=== PATIENT | male | born 2000 | race Caucasian/White ===

== ENCOUNTER → 2020-08-14 15:29 | Outpatient (REF) | payer MEDICAID, SELFPAY ==
--- NOTE | 2020-08-14 03:00 | CA_ITS ---
Transthoracic Echocardiogram Patient (Last, First, Middle): Denilson Rodriguez M Gender: Male Date of : 2000 Age: 19 Procedure Date: 08/14/2020 Procedure Type: Transthoracic Echocardiogram Location: OP Height: 175.26 cm Weight: 66.23 kg BSA: 1.81 m2 Heart Rate: bpm BP: 112 / 70 mmHg Sas Developer: DARLYN Amaro MD: Jesse Rouse MD Ocean Export Agent: Audi Suarez MD Symptoms: SYNCOPE COLLAPSE R55 Study Quality: Good ECG Rhythm: Sinus Conclusions: - Normal study Findings Left Ventricle Normal left ventricular size, thickness, and systolic function. The visually estimated ejection fraction is between 65-70%. There is no evidence of regional wall motion abnormalities. Diastolic function is normal for age. Right Ventricle Normal right ventricular cavity size and systolic function. Atria Both atria are normal in size. There is no evidence of interatrial shunt. Aortic Valve Normal aortic valve structure and function. There is no aortic valve stenosis. There is no aortic valve regurgitation. Mitral Valve Normal mitral valve structure and function. There is trace mitral valve regurgitation. There is no mitral valve stenosis. Pulmonic Valve The pulmonic valve is likely normal. Tricuspid Valve Normal tricuspid valve structure. There is trace tricuspid valve regurgitation. The right ventricular systolic pressure is normal. The right ventricular systolic pressure is 19 mmHg. Normal right atrial pressure. There is no evidence of pulmonary hypertension. Great Vessels All visible segments of the aorta are normal in size. The pulmonary artery was not well visualized. Venous The inferior vena cava is normal in size and collapses greater than 50% with inspiration. Pericardium/Pleural There is no evidence of pericardial effusion. Prior Study Comparison No prior study available for comparison. Measurements 2D Linear Measurements RVIDd: 2.52 RVIDd Index: 1.39 IVSd: 0.75 0.6-0.9/0.6-1.0 cm LVIDd: 5.21 3.9-5.3/4.2-5.9 cm LVIDd Index: 2.88 2.4-3.2/2.2-3.1 cm/m2 LVIDs: 3.40 2.0-3.6 cm LVPWd: 1.00 0.7-1.1 cm Ao Root: 2.40 2.1-3.5 cm LA Diam: 2.90 2.7-3.8/3.0-4.0 cm LAIDs Index: 1.60 1.5-2.3 cm/m2 LV Mass: 204.17 67-162/88-224 g LV Mass Index: 112.80 43-95/49-115 g/m2 LVOT Diam: 2.10 3.0+(-)1.3 cm 2D Systolic Function EF 4C: 69.40 >55% EF 2C: 65.20 >55% EF BiP: 68.30 >55% Mitral Valve MV Pk E: 0.96 MV PK A: 0.25 MV Decel Time: 280.00 E/A: 3.80 E'Lateral: 17.10 E'Medial: 13.50 E/E' Med: 7.10 E/E' Lat: 5.60 Aortic Valve AoV Pk Chris: 1.59 AoV Mn Chris: 0.97 AoV VTI: 0.35 AoV Pk Grad: 10.00 Aov Mn Grad: 5.00 AGUILA Cont.VTI: 2.22 LVOT LVOT Pk Chris: 1.17 LVOT Mn Chris: 0.78 LVOT VTI: 0.22 LVOT Pk Grad: 5.00 LVOT Mn Grad: 3.00 LVOT Diam: 2.10 LVOT Area: 3.46 Diastolic Function MV Pk E: 0.96 MV Pk A: 0.25 E/A: 3.80 E'Medial: 13.50 E/E' Med: 7.10 E' Laterial: 17.10 E/E' Lat: 5.60 Tricuspid Valve TR Pk Chris: 2.00 TR Pk Grad: 16.00 RA Press: 3.00 RVSP: 19.00 Great Vessels Aorta Ao Root-2D: 2.40 2.0-3.7 cm Ao Asc: 2.20 2.1-3.4 cm Ao Arch: 1.50 Updated in Other Vendor System with Status of Final Audi Suarez MD electronically signed on 08/16/2020 10:41:37 AM with status of Final
== END ==
LOC: HO.CARD 15:29
PROVIDERS: Visit Provider Internal Medicine
DX: R55 Syncope and collapse (principal)
CPT/HCPCS: 93306

== ENCOUNTER → 2020-09-19 15:13 | Outpatient (BNVA) | payer MEDICAID, SELFPAY | PROVIDERS: Visit Provider Internal Medicine | DX: R55 Syncope and collapse (principal) | CPT/HCPCS: 99212 ==

== ENCOUNTER 2020-11-14 11:18 | Outpatient (REF) | payer MEDICAID, SELFPAY | END 2020-11-14 11:19 | disposition home or self-care (01) | LOC: HO.LAB 11:18 | PROVIDERS: Visit Provider Internal Medicine | DX: Z20.822 Contact with and (suspected) exposure to COVID-19 (principal) | CPT/HCPCS: 36415; C9803; U0003; U0005 ==

== ENCOUNTER 2020-11-26 15:06 | Outpatient (REF) | payer MEDICAID, SELFPAY | END 2020-11-26 15:07 | disposition home or self-care (01) | LOC: HO.LAB 15:06 | PROVIDERS: Visit Provider Internal Medicine | DX: Z20.822 Contact with and (suspected) exposure to COVID-19 (principal) | CPT/HCPCS: 36415; C9803; U0003; U0005 ==

== ENCOUNTER 2021-01-23 16:47 | Emergency (ER) | payer MEDICAID, SELFPAY | END 2021-01-23 18:34 | disposition left against medical advice (07) | LOC: HO.ED 18:27 | PROVIDERS: Emergency Provider Emergency Medicine | DX: M54.9 Dorsalgia, unspecified (principal) ==

== ENCOUNTER 2021-01-30 02:46 | Emergency (ER) | payer MEDICAID, SELFPAY ==
[2021-01-30 02:54] VITALS: BP 145/79; PULSE 81; RESP 18; TEMP 36.7; O2SAT 97; BMI 22.8
--- NOTE | 2021-01-30 03:56 | ED.GENADULT ---
HPI - General Adult General Chief complaint: Back Pain/Injury Stated complaint: Back pain Time Seen by Provider: 01/30/21 03:56 Source: patient Mode of arrival: ambulatory Limitations: no limitations History of Present Illness HPI narrative: 20-year-old male who presents emergency department for evaluation of lower back pain x1 week. The patient states that he does not recall any specific injury to his back. He is active and he states that he does lift heavy objects at work but does not recall specific work injury. Patient states that he has had a constant, lower back pain which she describes as a dull, cramping pain which is worse with movement. The pain is 7/10 at its worst. The pain does not radiate down his legs, he denies numbness or weakness or loss of bowel or bladder control. The patient states that he has been taking ibuprofen occasionally with only minimal relief his pain. He denied fever, chills, chest pain, shortness of breath, nausea, vomiting. Related Data Previous Rx's Medication Instructions Recorded cyclobenzaprine 10 mg PO TID PRN #20 tab 01/30/21 Allergies Allergy/AdvReac Type Severity Reaction Status Date / Time No Known Allergies Allergy Verified 01/30/21 02:57 Review of Systems Review of Systems: Yes all other systems are reviewed and are negative PMFSH Past Medical History [facility] Narrative: The patient works in a plastic factory. He denies tobacco use, he states he drinks alcohol 3 times a week, he denies injection drug use, he does smoke marijuana daily. Medical History (Updated 01/30/21 @ 04:02 by Ba Shields MD) Syncope and collapse Family History Family History Father No problems noted. Mother No problems noted. Maternal Grandmother CVD (cardiovascular disease) Maternal Grandfather CVD (cardiovascular disease) Social History Social History Smoking Status: Never smoker Advance Directives: No Physical Exam Vital Signs: Vital Signs: Last Vital Signs Temp 98.1 F 01/30/21 02:54 Pulse 81 01/30/21 02:54 Resp 18 01/30/21 02:54 BP 145/79 H 01/30/21 02:54 Pulse Ox 97 01/30/21 02:54 Body Mass Index 22.8 Const: General: cooperative and healthy appearing Orientation/consciousness: oriented to person and oriented to place Limitations: no limitations HENMT: Head: Yes normal to inspection, Yes normocephalic and Yes atraumatic Ears: external ears normal General nose exam: Normal external nose present Face and sinus: Yes normal facial exam Mouth: Normal oral and palatal mucosa present Throat: Yes posterior oropharynx normal Eyes: Periorbital: periorbital findings normal Eyelids: Yes eyelids normal Conjunctivae: conjunctivae normal Sclerae: sclerae normal Corneas: corneas normal Pupils: Equal, round and reactive pupils present Direct Ophthalmoscopy: normal light reflex Neck: Neck: Yes full ROM, Yes no lymphadenopathy, Yes no meningeal signs, Yes trachea midline and Yes supple Chest: Chest palpation & inspection: normal inspection of the chest and normal palpation of entire chest wall Resp: Effort & Inspection: normal respiratory effort and able to speak in complete sentences Auscultation: clear to auscultation bilaterally Cardio: Rate: regular rate Rhythm: regular rhythm Heart sounds: S1 normal heart sound present, S2 normal heart sound present and no murmurs GI: Inspection: Yes normal to inspection Palpation (GI): Soft to palpation, nontender, no guarding, not rigid and No hepatosplenomegaly present : General: Yes no CVA tenderness Back/Spine/Pelvis: Back: no CVA tenderness Cervical Spine: normal cervical lordosis Thoracic/Lumbar Spine: thoracic and lumbar spine normal to inspection and paraspinal muscle tenderness bilaterally in the lower lumbar (Moderate with spasm) Skin: Lesions: no lesions Rashes: no rashes Wounds: no wounds Neuro: General: oriented to person, oriented to place and no meningeal signs Cranial nerves: Yes CN's II-XII intact bilaterally and Yes Equal, round and reactive pupils present Cognition (Neuro): normal cognition Motor exam (neuro): 5/5 motor strength present throughout Extrem: General: Yes normal to inspection and Yes full ROM Psych: Appearance: well kempt Mental Status: mental status grossly normal Speech and movement: Normal speech and movement present Affect: normal affect Attitude: cooperative Thought process: Normal thought process present Thought content: Normal thought content present Course Course Course Narrative: 20-year-old male who presents emergency department with lower back pain x1 week with no known injury. Physical examination did reveal tenderness with palpation of his paraspinal muscles in the lumbar sacral area with spasm of these muscles. His vital revealed a slightly elevated blood pressure otherwise no fever was noted. Patient's presentation is consistent with lumbar sacral paraspinal muscle strain/sprain. I did discuss this with the patient. He is advised to take ibuprofen Tylenol, he was also given a prescription for Flexeril. He was given verbal and printed instructions on back strain and discharged home. Discharge Plan Discharge Clinical Impression: Back strain Patient Disposition: Home, Self-Care Instructions: Low Back Strain (ED) Additional Instructions: Back Pain Discharge Instructions: Take Motrni(ibuprofen) 200 mg pills, 3 pills every 6 hours as needed for pain. Take Tylenol(acetaminophen) 325 mg pills, 2 pills every 4 hours as needed for pain. Take Flexeril(cyclobenzaprine) 10 mg pills, 1 pill every 8 hours as needed for pain or muscle spasm. This is a prescription medication. This medication will make you sleepy, therefore do not drive or work while taking this medication. Apply ice for 15 minutes to the area that hurts on your back, then apply a heating a pad on low for 15 minutes. Do this 4-6 times a day to help reduce the pain in your back. Continue with normal activities as tolerated since staying in bed and not moving around will make your pain worse. You can also try over the counter lidocaine patches as directed on the box to help with the pain. Please return to the Emergency Department or see your doctor immediately if your symptoms get worse or if you develop any new symptoms that are concerning you. Follow up with your doctor in 2 day. Please read the other printed discharge instructions on back pain. Prescriptions: New cyclobenzaprine 10 mg tablet 10 mg PO TID PRN (Reason: muscle pain or spasm) Qty: 20 RF: 0
== END 2021-01-30 04:57 | disposition home or self-care (01) ==
PROVIDERS: Emergency Provider Emergency Medicine Emergency Medical Services
DX: S39.012A Strain of muscle, fascia and tendon of lower back, initial encounter (principal); M79.605 Pain in left leg; M79.604 Pain in right leg; X58.XXXA Exposure to other specified factors, initial encounter; Y93.9 Activity, unspecified; Y92.9 Unspecified place or not applicable; Y99.9 Unspecified external cause status; Z79.899 Other long term (current) drug therapy
CPT/HCPCS: 99283

== ENCOUNTER 2021-07-25 17:29 | Emergency (ER) | payer MEDICAID, SELFPAY | END 2021-07-25 20:52 | disposition left against medical advice (07) | PROVIDERS: Emergency Provider Emergency Medicine | DX: M79.10 Myalgia, unspecified site (principal); R11.0 Nausea ==

== ENCOUNTER 2022-02-19 14:09 | Emergency (ER) | payer MEDICAID, SELFPAY ==
--- NOTE | 2022-02-19 | ECG_ITS ---
Test Reason : CHEST PAIN Blood Pressure : / mmHG Vent. Rate : 071 BPM Atrial Rate : 071 BPM P-R Int : 144 ms QRS Dur : 096 ms QT Int : 358 ms P-R-T Axes : 056 031 036 degrees QTc Int : 389 ms Normal sinus rhythm with sinus arrhythmia Normal ECG When compared with ECG of 04-JAN-2020 13:24, No significant change was found Referred By: Generic ED Physician Electronically Signed By:ANEUDY SIDHU MD
--- NOTE | ~2022-02-19 | XR_ITS ---
EXAMINATION: XR CHEST CLINICAL INFORMATION: Chest pain COMPARISON: Chest radiograph from 01/04/2020 TECHNIQUE: 2 views of the chest were obtained. FINDINGS: No focal consolidation. No pneumothorax. Trachea is midline. Cardiomediastinal silhouette is not enlarged. No large pleural effusion. Osseous structures are intact. Soft tissues are unremarkable. XR/XR chest 2V IMPRESSION: No acute cardiopulmonary process.
[2022-02-19 15:27] VITALS: BP 141/84; PULSE 67; RESP 18; TEMP 36.8; O2SAT 98; BMI 28.1
[2022-02-19 16:46] LABS: MANUAL DIFF FLAG NO
[2022-02-19 16:57] LABS: Basophils Percent Auto 0.3 % (0-2); Eosinophils Absolute Auto 0.1 X10*3/uL (0.0-0.4); Eosinophils Percent Auto 1.2 % (0-4); Hematocrit 45.8 % (42.0-52.0); Hemoglobin 15.6 g/dl (14.0-18.0); Imm Gran Abs Auto 0.01 X10*3/uL (0.00-0.03); Imm Gran Pct Auto 0.2 % (0.0-0.4); Lymphocytes Absolute Auto 1.4 X10*3/uL (1.2-4.9); Lymphocytes Percent Auto 21.5 % (20-40); Mean Corpuscular HGB Conc 34.1 g/dl (31.0-36.0); Mean Corpuscular Hemoglobin 30.4 pg (27.0-33.0); Mean Corpuscular Volume 89.1 fL (80.0-98.0); Mean Platelet Volume 10.6 fL (9.4-12.4); Monocytes Absolute Auto 0.6 X10*3/uL (0.1-1.2); Monocytes Percent Auto 9.3 % (2-11); Neutrophils Absolute Auto 4.4 x10*3/uL (2.0-8.3); Neutrophils Percent Auto 67.5 % (45-73); Platelet Count 171 X10*3/uL (160-400); Red Blood Count 5.14 X10*6/uL (4.60-5.80); White Blood Count 6.5 X10*3/uL (4.8-10.8)
[2022-02-19 17:04] LABS: Anion Gap 12 (12-20); Blood Urea Nitrogen 10 mg/dL (9-16); Calcium 9.9 mg/dL (8.4-10.2); Carbon Dioxide 27 mmol/L (22-29); Chloride 104 mmol/L (96-108); Creatinine Clr Calc Pharmacy 145.5; Estimated Glomerular Filt Rate > 60; Glucose Random 95 mg/dL (60-115); Potassium 4.4 mmol/L (3.3-5.1); Sodium 139 mmol/L (135-145)
[2022-02-19 17:06] LABS: Troponin-I High Sensitivity < 3.5 ng/L (<3.5-35.0)
== END 2022-02-19 23:44 | disposition left against medical advice (07) ==
PROVIDERS: Emergency Provider Emergency Medicine; PCP Nurse Practitioner Primary Care
DX: R07.9 Chest pain, unspecified (principal)
CPT/HCPCS: 36415; 71046; 80048; 84484; 85025; 93005; 99281; 99283

== ENCOUNTER → 2022-03-11 13:47 | Outpatient (BNVA) | payer MEDICAID, SELFPAY | PROVIDERS: PCP Nurse Practitioner Primary Care; Referring Provider Nurse Practitioner Primary Care; Visit Provider Nurse Practitioner Family | DX: R07.9 Chest pain, unspecified (principal) | CPT/HCPCS: 99212 ==

== ENCOUNTER 2022-05-05 14:27 | Emergency (ER) | payer MEDICAID, SELFPAY ==
[2022-05-05 16:21] VITALS: BP 131/76; BP 136/86; PULSE 60; PULSE 74; RESP 16; TEMP 36.4; O2SAT 100; O2SAT 97; BMI 27.3
== END 2022-05-05 20:37 | disposition left against medical advice (07) ==
PROVIDERS: Emergency Provider Emergency Medicine
DX: R06.02 Shortness of breath (principal); F41.9 Anxiety disorder, unspecified
CPT/HCPCS: 99281

== ENCOUNTER → 2022-05-06 12:54 | Outpatient (REF) | payer MEDICAID, SELFPAY ==
--- NOTE | 2022-05-06 13:00 | CA_ITS ---
Transthoracic Echocardiogram Patient (Last, First, Middle): Denilson Rodriguez M Gender: Male Date of : 2000 Age: 21 Procedure Date: 05/06/2022 Procedure Type: Transthoracic Echocardiogram Location: OP Height: 175.26 cm Weight: 86.18 kg BSA: 2.02 m2 Heart Rate: bpm BP: 124 / 80 mmHg Speeder Operator: IONA Referring MD: Lety Gaxiola [facility]-C Symptoms: R07.9 CHEST PAIN Study Quality: Fair ECG Rhythm: Sinus Conclusions: - The left ventricular systolic function is normal. The calculated ejection fraction is 60% by biplane method. - No obvious valvular pathology seen on this study. Findings Procedure Information Contrast agent, definity, is being given per protocol without apparent complications. Left Ventricle Normal left ventricular cavity size. There is normal left ventricular wall thickness. The left ventricular systolic function is normal. The calculated ejection fraction is 60% by biplane method. There is no evidence of regional wall motion abnormalities. Diastolic function is normal for age. Right Ventricle Normal right ventricular cavity size and systolic function. Atria Both atria are normal in size. Aortic Valve There is a normal trileaflet aortic valve. There is no aortic valve stenosis. There is no aortic valve regurgitation. Mitral Valve The mitral valve appears normal. There is trace mitral valve regurgitation. There is no mitral valve stenosis. Pulmonic Valve The pulmonic valve is likely normal. Tricuspid Valve Normal tricuspid valve structure. There is no tricuspid valve regurgitation. The pulmonary artery systolic pressure is normal. Great Vessels The aortic annulus, sinuses of valsalva, and asc aorta are normal in size. Venous The inferior vena cava is normal in size and collapses greater than 50% with inspiration. Pericardium/Pleural There is no evidence of pericardial effusion. Prior Study Comparison No significant change compared to prior study dated: 08/14/2020. Recommendations, Care & Conclusions No obvious valvular pathology seen on this study. Measurements 2D Linear Measurements IVSd: 1.03 0.6-0.9/0.6-1.0 cm LVIDd: 5.13 3.9-5.3/4.2-5.9 cm LVIDd Index: 2.54 2.4-3.2/2.2-3.1 cm/m2 LVIDs: 3.54 2.0-3.6 cm LVPWd: 1.12 0.7-1.1 cm Ao Root: 2.70 2.1-3.5 cm LA Diam: 3.50 2.7-3.8/3.0-4.0 cm LAIDs Index: 1.73 1.5-2.3 cm/m2 LV Mass: 260.86 67-162/88-224 g LV Mass Index: 129.14 43-95/49-115 g/m2 LVOT Diam: 2.10 3.0+(-)1.3 cm 2D Systolic Function EF 4C: 63.40 >55% EF 2C: 56.90 >55% EF BiP: 60.30 >55% Mitral Valve MV Pk E: 0.85 MV PK A: 0.39 MV Decel Time: 209.00 E/A: 2.20 E'Lateral: 15.70 E'Medial: 11.10 E/E' Med: 7.60 E/E' Lat: 5.40 PHT: 61.00 MVA PHT: 3.61 Decel Jennings: 4.06 Aortic Valve AoV Pk Chris: 1.55 AoV Mn Chris: 0.99 AoV VTI: 0.33 AoV Pk Grad: 10.00 Aov Mn Grad: 5.00 AGUILA Cont.VTI: 2.36 LVOT LVOT Pk Chris: 1.12 LVOT Mn Chris: 0.79 LVOT VTI: 0.23 LVOT Pk Grad: 5.00 LVOT Mn Grad: 3.00 LVOT Diam: 2.10 LVOT Area: 3.46 Diastolic Function MV Pk E: 0.85 MV Pk A: 0.39 E/A: 2.20 E'Medial: 11.10 E/E' Med: 7.60 E' Laterial: 15.70 E/E' Lat: 5.40 Right Ventricle TAPSE (mm): 25.00 Tricuspid Valve TR Pk Chris: 2.18 TR Pk Grad: 19.00 RA Press: 3.00 RVSP: 22.00 Great Vessels Aorta Ao Root-2D: 2.70 2.0-3.7 cm Ao Asc: 2.50 2.1-3.4 cm Pulmonary Valve PV Pk Chris: 1.20 Peak PV Grad: 6.00 Updated in Other Vendor System with Status of Final Jesse Rouse MD electronically signed on 05/08/2022 10:50:05 AM with status of Final
== END ==
LOC: HO.CARD 12:54
PROVIDERS: PCP Nurse Practitioner Primary Care; Visit Provider Nurse Practitioner Family
DX: R07.9 Chest pain, unspecified (principal)
CPT/HCPCS: 93306; Q9957

== ENCOUNTER 2022-07-20 06:21 | Emergency (ER) | payer MEDICAID, SELFPAY ==
--- NOTE | ~2022-07-20 | XR_ITS ---
EXAMINATION: RIGHT FOOT AND RIGHT ANKLE. CLINICAL INFORMATION: Pain in top of the foot. COMPARISON: None TECHNIQUE: Right foot 3 views. Right ankle 2 views. FINDINGS: RIGHT FOOT: There is no visible acute fracture, dislocation or subluxation. The joint spaces are maintained normal. The soft tissues are normal. RIGHT ANKLE: The ankle mortise and subtalar joints are normal. No visible acute fracture or dislocation seen. No abnormal soft tissue swelling. XR/XR ankle RT 2V IMPRESSION: Unremarkable right foot. Unremarkable right ankle.
--- NOTE | ~2022-07-20 | XR_ITS ---
EXAMINATION: RIGHT FOOT AND RIGHT ANKLE. CLINICAL INFORMATION: Pain in top of the foot. COMPARISON: None TECHNIQUE: Right foot 3 views. Right ankle 2 views. FINDINGS: RIGHT FOOT: There is no visible acute fracture, dislocation or subluxation. The joint spaces are maintained normal. The soft tissues are normal. RIGHT ANKLE: The ankle mortise and subtalar joints are normal. No visible acute fracture or dislocation seen. No abnormal soft tissue swelling. XR/XR foot RT 2V IMPRESSION: Unremarkable right foot. Unremarkable right ankle.
[2022-07-20 07:19] VITALS: BP 139/84; PULSE 60; RESP 16; TEMP 36.9; O2SAT 98; BMI 28.8
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
== END 2022-07-20 09:33 | disposition home or self-care (01) ==
PROVIDERS: Emergency Provider Student in an Organized Health Care Education/Training Program; PCP Nurse Practitioner Primary Care
DX: S90.31XA Contusion of right foot, initial encounter (principal); V86.56XA Driver of dirt bike or motor/cross bike injured in nontraffic accident, initial encounter; Y93.89 Activity, other specified; Y92.9 Unspecified place or not applicable; Y99.9 Unspecified external cause status
CPT/HCPCS: 73600; 73620; 99283

== ENCOUNTER 2022-11-24 09:33 | Outpatient (REF) | payer MEDICAID, SELFPAY ==
[2022-11-24 10:50] LABS: Hemoglobin 15.1 g/dl (14.0-18.0); Mean Corpuscular HGB Conc 34.3 g/dl (31.0-36.0); Mean Corpuscular Hemoglobin 31.1 pg (27.0-33.0); Mean Corpuscular Volume 90.5 fL (80.0-98.0); Mean Platelet Volume 10.9 fL (9.4-12.4); Platelet Count 174 X10*3/uL (160-400); Red Blood Count 4.86 X10*6/uL (4.60-5.80); White Blood Count 3.9 X10*3/uL (4.8-10.8)
[2022-11-24 11:26] LABS: C Reactive Protein 0.63 mg/dL (< or = 0.50)
[2022-11-24 11:50] LABS: Ferritin 96 ng/mL (20-250); TSH reflex Free T4 1.16 uIU/mL (0.32-4.0)
[2022-11-25 05:02] LABS: ~HepC Num1 0.14 S/CO (0.00-0.79); ~Hepatitis C Antibody Nonreactive (Nonreactive)
[2022-11-26 14:23] LABS: Immunoglobulin A 255 mg/dL (47-310)
[2022-11-27 18:59] LABS: Transglutaminase IgA <1.0 U/mL
== END 2022-11-24 09:34 | disposition home or self-care (01) ==
LOC: HO.LAB 09:33
PROVIDERS: PCP Nurse Practitioner Primary Care; Visit Provider Internal Medicine
DX: R10.13 Epigastric pain (principal); R19.7 Diarrhea, unspecified
CPT/HCPCS: 36415; 82728; 82784; 84443; 85027; 86140; 86364; 86803; 99202

== ENCOUNTER 2022-12-27 15:04 | Emergency (ER) | payer MEDICAID, SELFPAY ==
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
[2022-12-27 15:11] VITALS: BP 148/72; PULSE 98; RESP 16; O2SAT 97; BMI 28.1
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
== END 2022-12-27 16:17 | disposition home or self-care (01) ==
PROVIDERS: Emergency Provider Emergency Medicine; PCP Nurse Practitioner Primary Care
DX: S60.221A Contusion of right hand, initial encounter (principal); M25.531 Pain in right wrist; Y33.XXXA Other specified events, undetermined intent, initial encounter; Y93.9 Activity, unspecified; Y92.9 Unspecified place or not applicable; Y99.9 Unspecified external cause status
CPT/HCPCS: 73110; 73130; 99283

== ENCOUNTER → 2023-01-22 12:22 | Outpatient (BNVA) | payer MEDICAID, SELFPAY | PROVIDERS: PCP Nurse Practitioner Primary Care; Visit Provider Internal Medicine | DX: R10.13 Epigastric pain (principal); R11.10 Vomiting, unspecified; K21.9 Gastro-esophageal reflux disease without esophagitis | CPT/HCPCS: 99212 ==

== ENCOUNTER 2023-03-11 12:24 | Day surgery (SDC) | payer MEDICAID, SELFPAY ==
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
[2023-03-11 12:38] VITALS: BMI 27.8
[2023-03-11 12:42] VITALS: BP 136/82; PULSE 81; RESP 16; TEMP 36.7; O2SAT 97
[2023-03-11] MEDS: Lactated Ringers 1,000 ML 100 ML IVCONT (12:59)
--- NOTE | 2023-03-11 13:15 | MHC.SHP ---
Pre-Procedural Eval Section A Date of Service: 03/11/23 Section B Chief Complaint: Epigastric pain,Vomiting, unspecified Relevant Social History: Tobacco Use (former ) Present Medications: see Short Stay Collaborative assessment Medical History: No relevant PMH History of Previous Operations: No relevant previous surgery Allergies: Allergies Allergy/AdvReac Type Severity Reaction Status Date / Time No Known Allergies Allergy Verified 01/22/23 12:30 Review of Systems Review of Systems Comment: Ten point ROS negative, his nausea and vomiting has fact resolved Exam Exam Comment: Gen appear: No acute distress HEENT: no icterus Chest: No overt resp distress Abd: soft, nontender, nondistended Psych: Stable affect, answering questions appropriately Neuro: A/Ox3 noted to move all extremities spontaneously Ext: no peripheral edema Plan Diagnosis/Plan: Unchanged I have reviewed the history and physical and performed a pertinent physical examination on my patient. No changes have occurred unless specified. Time Spent With Patient Time: Total time managing care of this patient today ____ minutes.
--- NOTE | 2023-03-11 13:16 | P.OP_ITS ---
Operative Note Operative Note Date of Service: 03/11/23 Narrative: Procedure: Esophagogastroduodenoscopy Endoscopist: Amy Leon MD Indication: Nausea, vomiting Anesthesia Provider: Dr Malcolm Wilkerson Anesthesia Type: MAC Instrument: Olympus [id number]-H190 ?? EGD Procedure:?? The procedure, indications, preparation and potential complications were reviewed with the patient, who indicated understanding and gave written informed consent to proceed. A physical exam was performed. The endoscope was introduced through the mouth, and advanced to the second part of duodenum. The mucosa was carefully examined on slow withdrawal of the endoscope. The patient tolerated the procedure well. There were no immediate complications.? ? EGD Findings:? * Esophagus:? Normal mucosa noted in the entire esophagus. The Z line was at 40 cm. * Stomach:? Normal mucosa was noted in the stomach. * Duodenum:? Normal mucosa was noted in the whole of the examined duodenum. Cold forceps biopsies were taken from duodenal bulb and second portion of the duodenum to rule out celiac sprue. ? EGD Impressions:? * Normal esophagus * Normal stomach * Normal duodenum (biopsy) ?? Recommendations:?? * Follow biopsy results. Our office will call or send a letter with results within 7-10 days. * No evidence of esophagitis noted, can taper of PPIs * Avoid NSAIDs and smoking. Above has been reviewed with the patient. Relevant educational hand outs were p rovided at discharge.
[2023-03-11 13:43] VITALS: BP 123/71; PULSE 90; RESP 17; TEMP 36.3; O2SAT 98
[2023-03-11 14:02] VITALS: BP 135/73; PULSE 73; RESP 18; TEMP 36.3; O2SAT 97
== END 2023-03-11 14:25 | disposition home or self-care (01) ==
PROVIDERS: PCP Nurse Practitioner Primary Care; Visit Provider Internal Medicine
PROC: 0DJ08ZZ Inspection of Upper Intestinal Tract, Via Natural or Artificial Opening Endoscopic (ICD-10-PCS; CPT 43235; principal; 2023-03-11 14:00)
DX: R10.13 Epigastric pain (principal); K29.80 Duodenitis without bleeding; Z79.899 Other long term (current) drug therapy; F12.90 Cannabis use, unspecified, uncomplicated; Z87.891 Personal history of nicotine dependence
CPT/HCPCS: 43239; 88305

== ENCOUNTER 2023-08-04 15:54 | Outpatient (REF) | payer MEDICAID, SELFPAY ==
[2023-08-05 04:15] LABS: Syphilis Screen Nonreactive (Nonreactive)
== END 2023-08-04 15:55 | disposition home or self-care (01) ==
LOC: HO.HHCL 15:54
PROVIDERS: Visit Provider Nurse Practitioner Family
DX: Z11.3 Encounter for screening for infections with a predominantly sexual mode of transmission (principal)
CPT/HCPCS: 36415; 86780

== ENCOUNTER 2023-08-11 16:05 | Outpatient (REF) | payer MEDICAID, SELFPAY ==
[2023-08-12 07:20] LABS: ~HepC Num1 0.13 S/CO (0.00-0.79); ~Hepatitis C Antibody Nonreactive (Nonreactive)
[2023-08-12 11:57] LABS: CT PCR NOT DETECTED (Not Detect.); NG PCR NOT DETECTED (Not Detect.)
[2023-08-15 19:18] LABS: HIV RNA PCR Qn Copies Not Detected Copies/mL; HIV RNA PCR Qn Log Copies Not Detected Log cps/mL
[2023-08-16 09:54] LABS: RPR Rapid Plasma Reagin NON-REACTIVE (NON-REACTIVE)
== END 2023-08-11 16:06 | disposition home or self-care (01) ==
LOC: HO.HHCL 16:05
PROVIDERS: Visit Provider Nurse Practitioner Family
DX: Z11.3 Encounter for screening for infections with a predominantly sexual mode of transmission (principal)
CPT/HCPCS: 0353U; 86592; 86803; 87536; 87900

== ENCOUNTER 2023-08-17 04:15 | Emergency (ER) | payer MEDICAID, SELFPAY ==
--- NOTE | ~2023-08-17 | CT_ITS ---
CT SOFT TISSUE NECK WITH CONTRAST CLINICAL INFORMATION: Right-sided tonsillar swelling with question abscess. COMPARISON: None available. TECHNIQUE: Following the intravenous administration of 100 mL of Omnipaque 350 intravenous contrast, helical imaging was performed in the axial plane with generation of coronal and sagittal reformatted images. This CT examination was performed using dose optimization techniques as appropriate, variously including the following: *Automated exposure control *Adjustment of mA and/or kV according to patient size (this includes techniques or standardized protocols for targeted exams where dose is matched to indication/reason for exam; i.e. extremities or head) *Use of iterative reconstruction technique FINDINGS: Asymmetric enlargement and heterogeneity of the right palatine tonsil suggesting palatine tonsillitis. There is an ill-defined hypodense collection along the upper and posterior margin of the right palatine tonsil measuring up to 1.2 cm in size concerning for a developing peritonsillar abscess. No deep cervical cellulitic changes. No retropharyngeal cellulitis. Reactive lymph nodes along the jugular chains bilaterally. Cervical venous system is patent. No acute nor suspicious osseous findings. Retention cyst within the maxillary sinuses bilaterally and mild mucosal thickening within the ethmoid air cells bilaterally. The partially imaged intracranial compartment is unremarkable. CT/CT soft tissue neck w IV con IMPRESSION: Right-sided palatine tonsillitis. There is an ill-defined hypodense collection along the upper and posterior margin of the right palatine tonsil measuring up to 1.2 cm in size concerning for a developing peritonsillar abscess. No retropharyngeal cellulitis.
[2023-08-17 04:36] VITALS: BP 145/80; PULSE 99; RESP 20; TEMP 37.6; O2SAT 96; BMI 28.0
--- NOTE | 2023-08-17 04:46 | PC.NURSE ---
Pt ambulated into room with a steady gait, AOx3, Pt reporting a sore throat since yesterday, worsening throughout the night. Pt reports throat feels very swollen, difficulty swallowing 10/10 pain. Denies fevers, denies n/v. No sick contacts, no redness or spots noted in back of throat. Pt has been swabbed and sent to lab, pt awaiting results.
[2023-08-17 04:52] LABS: IDNOW Serial# 6674DD1D; Strep A Nucleic Acid Negative (Negative)
[2023-08-17 05:22] LABS: Influenza A PCR NEGATIVE (Negative); Influenza B PCR NEGATIVE (Negative); Resp Syncy Virus RNA Qual PCR NEGATIVE (Negative); SARS COV2 PCR INHOUSE NEGATIVE (Negative)
[2023-08-17 05:23] VITALS: BP 104/83; PULSE 96; RESP 15; TEMP 37.6
--- NOTE | 2023-08-17 06:59 | ED.GENADULT ---
HPI - General Adult General Chief complaint: General Medical Stated complaint: Sore throat Time Seen by Provider: 08/17/23 06:44 Source: patient Mode of arrival: ambulatory Limitations: no limitations History of Present Illness HPI narrative: This is a 22-year-old male without significant medical history presenting to the emergency department for evaluation of sore throat x2 days, patient reports sore throat is worse on the right side, he reports pain is so bad it awoke him from his sleep he is also reporting associated right mandibular pain, reports he is having difficulty swallowing and rates the pain a 10/10 that is constant in nature. Patient reports difficulty with eating foods. He denies fevers, chills, chest pain, shortness of breath, nausea, vomiting, abdominal pain, headache, vision changes, dizziness, weakness. No known sick contacts. Related Data Previous Rx's Medication Instructions Recorded omeprazole 20 mg capsule,delayed 20 mg PO DAILY 90 days #90 caps 01/22/23 release Magic Mouthwash 5 ml PO TID #240 mL 08/17/23 Diphen/Lido/Antacid 1:1:1 240 mL suspension amoxicillin 875 mg-potassium 1 tab PO BID 10 days #20 tabs 08/17/23 clavulanate 125 mg tablet ondansetron 4 mg disintegrating 4 mg PO Q6H PRN nausea and 08/17/23 tablet vomiting #14 tabs prednisone 50 mg tablet 50 mg PO DAILY 5 days #5 tabs 08/17/23 Allergies Allergy/AdvReac Type Severity Reaction Status Date / Time No Known Allergies Allergy Verified 01/22/23 12:30 Review of Systems Review of Systems: Constitutional : No Weight loss, No Fever, No Chills, No Fatigue, No Malaise ENT/Mouth : + sore throat, No Rhinorrhea Eyes: No Eye Pain, No Swelling, No Redness Cardiovascular : No Chest Pain, No SOB, No Dyspnea on Exertion, No Orthopnea, No Edema, No Palpitations Respiratory : No Cough, No Sputum, No Wheezing Gastrointestinal : No Nausea, No Vomiting, No Diarrhea, No Constipation, No abdominal Pain, No Hematochezia, No Melena Genitourinary : No Dysuria, No Urinary Frequency, No Hematuria, Musculoskeletal : No joint pain, No Myalgias, No Joint Swelling Skin : No Skin Lesions, No rash Neuro : No Weakness, No Numbness, No Dizziness, No Headache Psych : No Anxiety/Panic, No Depression All other systems reviewed and are negative Yes all other systems are reviewed and are negative [facility] Past Medical History Attestation statement: The following information was validated with the patient. Source: old records reviewed and nursing notes reviewed Medical History GERD (gastroesophageal reflux disease) Syncope and collapse Family History Family History Father No problems noted. Mother No problems noted. Maternal Grandmother CVD (cardiovascular disease) Maternal Grandfather CVD (cardiovascular disease) Social History Social History Patient Tobacco Use Status: Never used Tobacco Smoked in Last 30 Days: No Use of substances other than those prescribed or required for medical reasons: Yes Substance Use Type: Marijuana Advance Directives: No Advance Directives Information Provided: Yes Physical Exam ED Vital Signs: Vital Signs - 24 hr 08/17/23 04:36 08/17/23 05:23 08/17/23 07:13 Temperature 99.7 F 99.6 F 99.8 F Pulse Rate 99 96 86 Respiratory Rate 20 15 16 Blood Pressure 145/80 H 104/83 136/79 Pulse Oximetry 96 97 Oxygen Delivery Method Room Air Room Air 08/17/23 07:43 Temperature Pulse Rate 91 Respiratory Rate 14 Blood Pressure 132/73 Pulse Oximetry 97 Oxygen Delivery Method Room Air BMI result Body Mass Index 28.0 vss Appearance: Alert.? Oriented X3.? No acute distress.? Head: Normocephalic, atraumatic, no step-offs or deformities Eyes: Pupils equal, round and reactive to light.? ENT: Pharynx w/ errythema, b/l tonsils enlarged R>L, slight exudates on right tonsil. Uvula midline. Patient controlling secretions well speaking in full sentences. Neck: Normal inspection.? Neck supple.?+ Right sided submandibular adenopathy CVS: Normal heart rate and rhythm.? Pulses normal.? Respiratory: No respiratory distress.? Breath sounds normal.? Abdomen: Soft and nontender.? Skin: Skin warm and dry.? Normal skin color.? Normal skin turgor.? Extremities: No lower extremity edema.? No calf ttp. 5/5 strength to bilateral upper and lower extremities Neuro: Oriented X 3.? No motor deficit.? No sensory deficit. CN 2-12 intact Course Reevaluation(s) Reevaluation #1: CBC with leukocytosis 15.3 and a left shift, likely viral/strep i do not suspect sepsis . Chemistry unremarkable. CT scan showing right-sided palatine tonsillitis and ill-defined hypodense collection along upper and posterior margin of the right palatine tonsil measuring 1.2 cm concerning for developing peritonsillar abscess. Discuss this with my attending plan at this time is outpatient treatment with antibiotic, patient did have an episode of vomiting the department he decided he did not feel well, given Zofran with good relief. No abdominal tenderness on exam unlikely acute abdomen this is likely secondary to viral illness/pharyngitis. Patient tolerating p.o. drinking and eating at the bedside without difficulty. Will discharge with ENT follow-up peer Educated patient on diagnosis and treatment plan, answered all question, patient verbalizes understanding. At this time patient will be discharged home, advised to return with new or worsening symptoms. Educated on worrisome signs and symptoms and when to return. At this time I feel comfortable discharge home. Medications Administered Discontinued Medications Generic Name Dose Route Start Last Admin Trade Name Ramyq PRN Reason Stop Dose Admin Iohexol 100 ml 08/17/23 08:57 08/17/23 08:58 Iohexol 350 Mg/Ml 100 Ml Infus..Btl IV 08/17/23 08:58 60 ml ONCE ONE Administration Ketorolac Tromethamine 15 mg 08/17/23 06:59 08/17/23 07:14 Ketorolac Tromethamine 15 Mg/Ml Vial IVPUSH 08/17/23 07:00 15 mg ONCE ONE Administration Ondansetron HCl 4 mg 08/17/23 08:12 08/17/23 08:28 Ondansetron Odt 4 Mg Tab.Rapdis TRANSLINGU 08/17/23 08:13 Not Given ONCE ONE Medical Decision Making Medical Decision Making [facility] Narrative: 07 22 year old male presents w/ sore throat X 2 days PE w/ Pharynx w/ errythema, b/l tonsils enlarged R>L, slight exudates on right tonsil. Uvula midline. Patient controlling secretions well speaking in full sentences. Right sided submandibular adenopathy Likely pharyngitis versus peritonsillar abscess versus viral illness. Unlikely threat to airway, retropharyngeal abscess, epiglottitis. Plan at this time labs, imaging, viral test. Differential Diagnosis Differential Diagnoses: The differential diagnosis associated with the presentation includes Likely pharyngitis versus peritonsillar abscess versus viral illness. Unlikely threat to airway, retropharyngeal abscess, epiglottitis. Admission/Observation Consideration of admission/observation: Escalation of care including admission/observation considered unlikely Lab Data MDM Lab Attestation statement: I reviewed the patient's lab results. 08/17/23 07:09 08/17/23 07:09 Labs: Lab Results 08/17/23 08/17/23 Range/Units 04:41 07:09 WBC 15.3 H (4.8-10.8) X10*3/uL RBC 5.05 (4.60-5.80) X10*6/uL Hgb 15.9 (14.0-18.0) g/dl Hct 46.0 (42.0-52.0) % MCV 91.1 (80.0-98.0) fL MCH 31.5 (27.0-33.0) pg MCHC 34.6 (31.0-36.0) g/dl RDW 12.1 (11.0-16.0) % Plt Count 159 L (160-400) X10*3/uL MPV 10.4 (9.4-12.4) fL Immature Gran % (Auto) 0.4 (0.0-0.4) % Neut % (Auto) 85.7 H (45-73) % Lymph % (Auto) 5.2 L (20-40) % Forest % (Auto) 8.6 (2-11) % Eos % (Auto) 0.0 (0-4) % Baso % (Auto) 0.1 (0-2) % Lymph # (Auto) 0.8 L (1.2-4.9) X10*3/uL Forest # (Auto) 1.3 H (0.1-1.2) X10*3/uL Eos # (Auto) 0.0 (0.0-0.4) X10*3/uL Baso # (Auto) 0.0 (0.0-0.2) X10*3/uL Abs Immat Gran (auto) 0.06 H (0.00-0.03) X10*3/uL Absolute Neuts (auto) 13.1 H (2.0-8.3) x10*3/uL Absolute Nucleated RBC 0.000 (0.0-0.012) X10*3/uL Nucleated RBC % (auto) 0.0 (0.0-0.2) /100WBC Sodium 140 (135-145) mmol/L Potassium 4.1 (3.3-5.1) mmol/L Chloride 105 (96-108) mmol/L Carbon Dioxide 24 (22-29) mmol/L Anion Gap 15 (12-20) BUN 9 (9-16) mg/dL Creatinine 0.80 (0.5-1.4) mg/dL Estim Creat Clear Calc 151.1 Estimated GFR > 60 Random Glucose 110 (60-115) mg/dL Calcium 9.3 D (8.4-10.2) mg/dL Total Bilirubin 0.8 (0.0-1.0) mg/dL AST 16 (5-37) U/L ALT 14 (0-40) U/L Alkaline Phosphatase 81 (39-117) U/L Total Protein 7.7 (6.5-8.0) g/dL Albumin 4.7 (3.5-5.0) g/dL Lipase 16 (8-78) U/L Influenza Type A (PCR) NEGATIVE (Negative) Influenza Type B (PCR) NEGATIVE (Negative) RSV RNA Qual (PCR) NEGATIVE (Negative) SARS-CoV-2 RNA (RT-PCR) NEGATIVE (Negative) S. pyogenes GrpA CLARICE Negative (Negative) Independent Interpretation I performed an independent interpretation of an: CT Scan Radiology Impression Discussion of test interpretation with radiology: I have reviewed the radiologist's reading. Prescription Management I considered prescription management with: Pain Medication and Antibiotic Discharge Plan Discharge Clinical Impression: Vomiting, Pharyngitis, Abscess, peritonsillar Patient Disposition: Home, Self-Care Instructions: Pharyngitis (ED), Peritonsillar Abscess (DC), Acute Nausea and Vomiting (ED) Additional Instructions: Take your medications as prescribed. If you were prescribed antibiotics today, it is important that you take your medication to their entirety, do not skip any doses, do not finish them early. Follow-up with your primary care provider this week. Return to the emergency department with new or worsening symptoms. Such as fevers, chills, chest pain, shortness of breath, nausea, vomiting, dizziness, headache, vision changes, lethargy In case of emergency call [address] scan shows a developing abscess, early abscesses or treated with antibiotics, if symptoms worsen or you notice difficulty swallowing, changes in voice, drooling, shortness of breath or any new or worsening symptoms you should return immediately. Please be re-evaluated in 2-[address]/CT soft tissue neck w IV con IMPRESSION: Right-sided palatine tonsillitis. There is an ill-defined hypodense collection along the upper and posterior margin of the right palatine tonsil measuring up to 1.2 cm in size concerning for a developing peritonsillar abscess. No retropharyngeal cellulitis. Prescriptions: New prednisone 50 mg tablet 50 mg PO DAILY 5 Days Qty: 5 0RF amoxicillin-pot clavulanate 875-125 mg tablet 1 tab PO BID 10 Days Qty: 20 0RF Magic Mouthwash Diphen/Lido/Antacid 1:1:1 240 mL suspension 5 ml PO TID Qty: 240 0RF Rx Instructions: Lidocaine Viscous 2 % 80mL; diphenhydramine 12.5 mg/5 mL 80mL; aluminum-mag hydrox-simeth 228oc-325pu-25qo/5mL 80mL Swish and spit, do not swallow ondansetron 4 mg tablet,disintegrating 4 mg PO Q6H PRN (Reason: nausea and vomiting) Qty: 14 0RF No Action omeprazole 20 mg capsule,delayed release(DR/EC) 20 mg PO DAILY 90 Days Qty: 90 0RF Referrals: Isa Perez TAM[employer] MAKER [Primary Care Provider] - 2 days Stand Alone Forms: Work/School Release
[2023-08-17 07:13] VITALS: BP 136/79; PULSE 86; RESP 16; TEMP 37.7; O2SAT 97
[2023-08-17] MEDS: Ketorolac Tromethamine 15 MG/ML VIAL IVPUSH (07:14)
[2023-08-17 07:15] LABS: Basophils Percent Auto 0.1 % (0-2); Hemoglobin 15.9 g/dl (14.0-18.0); Imm Gran Abs Auto 0.06 X10*3/uL (0.00-0.03); Imm Gran Pct Auto 0.4 % (0.0-0.4); Lymphocytes Absolute Auto 0.8 X10*3/uL (1.2-4.9); Lymphocytes Percent Auto 5.2 % (20-40); MANUAL DIFF FLAG NO; Mean Corpuscular HGB Conc 34.6 g/dl (31.0-36.0); Mean Corpuscular Hemoglobin 31.5 pg (27.0-33.0); Mean Corpuscular Volume 91.1 fL (80.0-98.0); Mean Platelet Volume 10.4 fL (9.4-12.4); Monocytes Absolute Auto 1.3 X10*3/uL (0.1-1.2); Monocytes Percent Auto 8.6 % (2-11); Neutrophils Absolute Auto 13.1 x10*3/uL (2.0-8.3); Neutrophils Percent Auto 85.7 % (45-73); Platelet Count 159 X10*3/uL (160-400); Red Blood Count 5.05 X10*6/uL (4.60-5.80); Red Cell Distribution Width 12.1 % (11.0-16.0); White Blood Count 15.3 X10*3/uL (4.8-10.8)
[2023-08-17 07:29] LABS: Alanine Aminotransferase 14 U/L (0-40); Albumin Level 4.7 g/dL (3.5-5.0); Alkaline Phosphatase 81 U/L (39-117); Anion Gap 15 (12-20); Aspartate Amino Transferase 16 U/L (5-37); Bilirubin Total 0.8 mg/dL (0.0-1.0); Blood Urea Nitrogen 9 mg/dL (9-16); Calcium 9.3 mg/dL (8.4-10.2); Carbon Dioxide 24 mmol/L (22-29); Chloride 105 mmol/L (96-108); Creatinine Clr Calc Pharmacy 151.1; Estimated Glomerular Filt Rate > 60; Glucose Random 110 mg/dL (60-115); Potassium 4.1 mmol/L (3.3-5.1); Sodium 140 mmol/L (135-145); Total Protein 7.7 g/dL (6.5-8.0)
[2023-08-17 07:43] VITALS: BP 132/73; PULSE 91; RESP 14; O2SAT 97
--- NOTE | 2023-08-17 07:51 | PC.NURSE ---
patient resting quietly in room, no signs/symptoms of distress. IV established, labs drawn and sent. awaiting ct scan. call holman within reach
--- NOTE | 2023-08-17 08:28 | PC.NURSE ---
patient was noted to be vomiting in room, offered zofran PO. patient refused stating it's only when he gets hungry that he vomits.
[2023-08-17] MEDS: iohexoL 350 MG/ML 100 ML INFUS..BTL IV (08:58)
[2023-08-17 09:24] LABS: Lipase 16 U/L (8-78)
== END 2023-08-17 09:39 | disposition home or self-care (01) ==
PROVIDERS: Physician Assistant; Emergency Provider Student in an Organized Health Care Education/Training Program; PCP Nurse Practitioner Primary Care
DX: J02.9 Acute pharyngitis, unspecified (principal); J36 Peritonsillar abscess; R11.2 Nausea with vomiting, unspecified; Z20.822 Contact with and (suspected) exposure to COVID-19; Z20.828 Contact with and (suspected) exposure to other viral communicable diseases
CPT/HCPCS: 0241U; 36415; 70491; 80053; 83690; 85025; 87651; 96374; 99284; J1885; Q9967